=== PATIENT | female | born 1985 | race Caucasian/White ===

== ENCOUNTER 2017-07-08 17:43 | Emergency (ER) | payer BC ==
[~2017-07-08] VITALS: Ht 165.1 cm; Wt 76.1 kg
[~2017-07-08 17:43] MED LIST: NORE0.3527 MT; PRENTAB26 PO
[2017-07-08 17:46] VITALS: TEMP 36.7; Ht 165.1 cm; Wt 76.1 kg
[2017-07-08] MEDS ORDERED: IBUP-103 PO (18:09)
[2017-07-08] MEDS ORDERED: SODIUM CHLORIDE 0.9% 1000ML 1,000 ML IV STA (18:43)
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
[2017-07-08 19:08] LABS: BASO % 0.7 %; BASO ABS # 0.08 K/uL (0-0.2); COMPLETE YES; EOS % 5.6 %; HEMATOCRIT 39.9 % (37-47); IG% 0.3 %; LYMPH % 29.8 %; LYMPH ABS # 3.23 K/uL (1.2-3.4); MEAN CELL VOLUME 87.7 fL (80-100); MEAN CORPUSCULAR HEMOGLOBIN 30.8 pg (25-34); MEAN CORPUSCULAR HGB CONC 35.1 g/dl (32-36); MEAN PLATELET VOLUME 9.4 fL (7.4-10.4); MONO % 9.6 %; PLATELET COUNT 251 K/uL (130-400); RED BLOOD COUNT 4.55 M/uL (4.2-5.4); WHITE BLOOD COUNT 10.85 K/uL (4.8-10.8)
--- NOTE | 2017-07-08 19:21 | DIAGNOSTIC IMAGING REPORT ---
HEAD WITHOUT CONTRAST (CT) CLINICAL HISTORY: 31 years-old Female presenting with headache, h/o Chiari malformation, 3 weeks of symptoms. TECHNIQUE: Multidetector CT imaging of the head was performed without the use of intravenous contrast. IV contrast: None. A dose lowering technique was used consistent with the principles of ALARA (as low as reasonably achievable). COMPARISON: None. CT DOSE (mGy.cm): The estimated cumulative dose is 679.75 mGycm. FINDINGS: Holter Technician topogram: Unremarkable. Crowding of the foramen magnum. Ventricles and sulci normal in size. Brain parenchyma normal in appearance with preserved jara-white differentiation. No mass effect or midline shift. No hemorrhage or acute territorial infarct. No extra-axial fluid collection. Layering fluid in the right maxillary sinus. IMPRESSION: 1. No acute intracranial pathology. 2. Crowding of the foramen magnum would be consistent with Chiari malformation. 3. Layering fluid in the right maxillary sinus could suggest acute sinusitis. Electronically signed by: Maximino Mclaughlin M.D. 07/08/2017 7:20 PM Dictated Date/Time: 07/08/2017 7:17 PM
[2017-07-08 19:25] LABS: BUN/CREATININE RATIO 17.2 (10-20); CREATININE 0.67 mg/dl (0.60-1.20)
[2017-07-08 19:28] LABS: ALB/GLOB RATIO 1.1 (0.9-2)
[2017-07-08 20:03] VITALS: BP 120/70; PULSE 70; O2SAT 98
[2017-07-08] MEDS ORDERED: DOXY100T17 PO (22:14)
== END 2017-07-08 20:04 | disposition home or self-care (01) ==
LOC: C.EDB 17:44 → C.EDA 20:04
DX: R51 Headache (principal); G93.5 Compression of brain

== ENCOUNTER → 2017-07-21 | Outpatient (CLI) | payer BC ==
[~2017-07-21] MED LIST changes: +DOXY100T17 PO; +IBUP-103 PO; -NORE0.3527 MT; -PRENTAB26 PO
--- NOTE | 2017-07-21 18:09 | DIAGNOSTIC IMAGING REPORT ---
MRI OF THE CERVICAL SPINE WITHOUT CONTRAST CLINICAL HISTORY: Type I Chiari malformation. Increasing headaches. Vision changes. COMPARISON: None. TECHNIQUE: Utilizing a 1.5 Chayo magnet and dedicated coil, multiplanar, multiecho imaging of the cervical spine was performed without IV contrast. FINDINGS: Alignment of the cervical spine is anatomic. Vertebral body heights are maintained. There is no marrow edema or marrow replacement. 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 This is consistent with a Chiari I malformation. The configuration of the cerebellar tonsils is peg-like. There is slight dilatation of the central canal of the cervical and upper thoracic cord which measures 1.5 mm in AP extent. No additional foci of cord signal abnormality are present. There is no intracanalicular mass or fluid collection. Paravertebral soft tissues are unremarkable. C2-C3: The central canal and neural foramen are patent. C3-C4: The central canal and neural foramen are patent. C4-C5: The central canal and neural foramen are patent. C5-C6: The central canal and neural foramen are patent. C6-C7: The central canal and neural foramen are patent C7-T1: The central canal and neural foramen are patent. IMPRESSION: 1. 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 2. Patent central canal and neural from. No disc herniations. Electronically signed by: Dipesh Frank M.D. 07/21/2017 6:08 PM Dictated Date/Time: 07/21/2017 5:59 PM
== END | disposition home or self-care (01) ==
PROVIDERS: ATTEND Family Medicine
DX: G93.5 Compression of brain (principal)